=== PATIENT | male | born 1985 | race African-American/Black ===

== ENCOUNTER 2018-06-06 06:59 | Inpatient (IN) | payer MEDICAID ==
[~2018-06-06] VITALS: Ht 188 cm; Wt 83.5 kg
[~2018-06-06 06:59] MED LIST: ATOR10TA69 MT; FURO-151 PO; METO-539 MT
[2018-06-06] MEDS ORDERED: NITROGLYCERIN OINT 1GM/INCH UDPKT TD STA (07:13)
[2018-06-06] MEDS ORDERED: FUROSEMIDE 40MG/4ML VIAL IVP ONE (07:15)
[2018-06-06 08:09] LABS: EOSINOPHILS % 6.5 % (0.0-5.0); HEMATOCRIT. 38.8 % (42.0-52.0); HEMOGLOBIN. 12.5 g/dL (14.0-18.0); LYMPHOCYTES % 16.2 % (20.0-50.0); MEAN CORPUSCULAR HEMOGLOBIN 26.9 pg (28.0-32.0); MEAN CORPUSCULAR VOLUME 83.5 fL (80.0-94.0); MEAN PLATELET VOLUME 8.6 fl (7.4-10.4); MONOCYTES % 12.7 % (2.0-8.0); NEUTROPHILS % 63.6 % (40.0-76.0); PLATELET 166 x1000/uL (130-400); RED BLOOD CELL COUNT 4.65 mill/uL (4.7-6.1); RED CELL DISTRIBUTION WIDTH 19.2 % (11.6-14.6)
[2018-06-06 08:13] LABS: INR 1.5; PROTHROMBIN TIME 15.4 sec (9.4-11.6)
[2018-06-06 08:17] LABS: CHLORIDE 99 mEq/L (98-107)
[2018-06-06] MEDS ORDERED: ASPIRIN 325MG TABLET PO ONE (09:00)
[2018-06-06 09:14] LABS: CLARITY URINE CLEAR (CLEAR); COLOR URINE YELLOW (YELLOW); KETONES URINE NEGATIVE (NEGATIVE); LEUKOCYTE ESTERASE URINE NEGATIVE (NEGATIVE); NITRITE URINE NEGATIVE (NEGATIVE); OCCULT BLOOD URINE TRACE (NEGATIVE); PROTEIN URINE 1+ (NEGATIVE); SPECIFIC GRAVITY URINE 1.006 (1.005-1.030)
[2018-06-06] MEDS ORDERED: LORAZEPAM 0.5MG TABLET PO PRN (10:45)
[2018-06-06] MEDS ORDERED: ACETAMINOPHEN 650MG SUPP PR PRN (10:45)
[2018-06-06] MEDS ORDERED: HYDROCODONE/ACETAMINOPHEN 5/325MG TABLET PO PRN (10:45)
[2018-06-06] MEDS ORDERED: IPRATROPIUM/ALBUTEROL 0.5-3(2.5)MG/3ML NEB INH PRN (10:45)
[2018-06-06] MEDS ORDERED: ACETAMINOPHEN 650MG/20.3ML UDC GT PRN (10:45)
[2018-06-06] MEDS ORDERED: ACETAMINOPHEN 325MG TABLET PO PRN (10:45)
[2018-06-06] MEDS ORDERED: DOCUSATE SODIUM 100MG CAPSULE PO PRN (10:45)
[2018-06-06] MEDS ORDERED: HYDROCODONE/ACETAMINOPHEN 10/325MG TABLET PO PRN (10:45)
[2018-06-06] MEDS ORDERED: CLONIDINE 0.1MG TABLET PO PRN (10:45)
[2018-06-06] MEDS ORDERED: DIPHENHYDRAMINE 50MG/ML VIAL IV PRN (10:45)
[2018-06-06] MEDS ORDERED: MAGNESIUM/ALUMINUM HYDROXIDE/SIMETHICONE 30ML UDC PO PRN (10:45)
[2018-06-06] MEDS ORDERED: ONDANSETRON HCL 4MG/2ML VIAL IV PRN (10:45)
[2018-06-06] MEDS ORDERED: GUAIFENESIN 200MG/10ML SUGAR FREE UDC PO PRN (10:45)
[2018-06-06] MEDS ORDERED: FUROSEMIDE 40MG/4ML VIAL IVP SCH (13:15)
[2018-06-06] MEDS ORDERED: NA PHOS,M-B/NA PHOS,DI-BA ENEMA 118ML PR PRN (16:00)
[2018-06-06 17:30] LABS: CREATINE KINASE MB FRACTION 5.4 ng/mL (0.5-3.6)
[2018-06-06 22:20] VITALS: BP 108/72
[2018-06-06] MEDS ORDERED: ATORVASTATIN CALCIUM 10MG TABLET PO SCH (23:25)
[2018-06-06 23:43] VITALS: BP 141/84
[2018-06-06] MEDS: FUROSEMIDE 40MG/4ML VIAL IVP SCH (23:46)
[2018-06-07] VITALS: BP 107/72
[2018-06-07 03:17] LABS: CREATINE KINASE MB FRACTION 5.5 ng/mL (0.5-3.6)
[2018-06-07 04:00] VITALS: BP 108/74
[2018-06-07 06:51] LABS: BASOPHILS % 1.3 % (0.0-2.0); EOSINOPHILS % 12.6 % (0.0-5.0); HEMATOCRIT. 38.2 % (42.0-52.0); HEMOGLOBIN. 12.3 g/dL (14.0-18.0); MEAN CORPUSCULAR HEMOGLOBIN 26.8 pg (28.0-32.0); MEAN CORPUSCULAR VOLUME 83.1 fL (80.0-94.0); MEAN PLATELET VOLUME 8.8 fl (7.4-10.4); MONOCYTES % 13.9 % (2.0-8.0); NEUTROPHILS % 47.2 % (40.0-76.0); PLATELET 163 x1000/uL (130-400); RED CELL DISTRIBUTION WIDTH 18.7 % (11.6-14.6)
[2018-06-07 07:36] LABS: CHLORIDE 100 mEq/L (98-107)
[2018-06-07 07:42] LABS: PHOSPHORUS 3.7 mg/dL (2.5-4.9)
[2018-06-07 07:43] LABS: LDL CHOLESTEROL 69 mg/dL (5-100)
[2018-06-07 07:45] LABS: HDL CHOLESTEROL 20 mg/dL (40-59)
[2018-06-07 07:52] LABS: T4 FREE 1.43 ng/dL (0.76-1.46)
[2018-06-07 08:00] VITALS: BP 97/66
[2018-06-07] MEDS: LOSARTAN POTASSIUM 25 MG TABLET PO SCH ×2 (08:37→20:46)
[2018-06-07] MEDS: CARVEDILOL 3.125 MG TABLET PO SCH ×2 (08:37→17:19)
[2018-06-07] MEDS: AMLODIPINE 2.5MG TABLET PO SCH ×2 (08:37→20:45)
[2018-06-07] MEDS: FUROSEMIDE 40MG/4ML VIAL IVP SCH ×2 (09:29→17:19)
[2018-06-07 12:00] VITALS: BP 107/72
[2018-06-07 16:00] VITALS: BP 108/78
[2018-06-07 20:00] VITALS: BP 111/78
[2018-06-08] VITALS: BP 106/77
[2018-06-08 04:00] VITALS: BP 113/73
[2018-06-08] MEDS: FUROSEMIDE 40MG/4ML VIAL IVP SCH ×2 (05:43→16:09)
[2018-06-08 05:45] VITALS: BP 117/69
[2018-06-08 07:02] LABS: CHLORIDE 100 mEq/L (98-107)
[2018-06-08 07:20] LABS: EOSINOPHILS % 12.8 % (0.0-5.0); HEMATOCRIT. 36.5 % (42.0-52.0); HEMOGLOBIN. 11.7 g/dL (14.0-18.0); LYMPHOCYTES % 23.3 % (20.0-50.0); MEAN CORPUSCULAR HEMOGLOBIN 26.9 pg (28.0-32.0); MEAN CORPUSCULAR VOLUME 83.7 fL (80.0-94.0); MEAN PLATELET VOLUME 8.7 fl (7.4-10.4); NEUTROPHILS % 51.9 % (40.0-76.0); PLATELET 165 x1000/uL (130-400); RED BLOOD CELL COUNT 4.36 mill/uL (4.7-6.1); RED CELL DISTRIBUTION WIDTH 18.8 % (11.6-14.6)
[2018-06-08 07:23] LABS: PHOSPHORUS 3.5 mg/dL (2.5-4.9)
[2018-06-08 07:26] LABS: CREATINE KINASE 857 IU/L (39-308)
[2018-06-08] MEDS: CARVEDILOL 3.125 MG TABLET PO SCH (08:22)
[2018-06-08] MEDS: AMLODIPINE 2.5MG TABLET PO SCH (08:23)
[2018-06-08] MEDS: LOSARTAN POTASSIUM 25 MG TABLET PO SCH (08:23)
[2018-06-08 12:00] VITALS: BP 116/80
[2018-06-08 15:50] VITALS: BP 118/60
== END 2018-06-08 16:16 | disposition home or self-care (01) | DRG 469 ==
LOC: ER 06:59 → 8WST 08:40 → EDBEDREQ 08:45 → ENRESERV 19:56 → 8WST 22:46
PROVIDERS: ADMIT Internal Medicine; ATTEND Internal Medicine
DX: N17.9 Acute kidney failure, unspecified (principal); J96.91 Respiratory failure, unspecified with hypoxia; I50.23 Acute on chronic systolic (congestive) heart failure; E44.0 Moderate protein-calorie malnutrition; E87.2 Acidosis; N18.3 Chronic kidney disease, stage 3 (moderate); I42.0 Dilated cardiomyopathy; I13.0 Hypertensive heart and chronic kidney disease with heart failure and stage 1 through stage 4 chronic kidney disease, or unspecified chronic kidney disease; I27.20 Pulmonary hypertension, unspecified; M62.82 Rhabdomyolysis; E87.1 Hypo-osmolality and hyponatremia; E78.00 Pure hypercholesterolemia, unspecified; I25.10 Atherosclerotic heart disease of native coronary artery without angina pectoris; J45.909 Unspecified asthma, uncomplicated; I08.1 Rheumatic disorders of both mitral and tricuspid valves; D64.9 Anemia, unspecified; Z82.49 Family history of ischemic heart disease and other diseases of the circulatory system; Z95.810 Presence of automatic (implantable) cardiac defibrillator; Z68.23 Body mass index [BMI] 23.0-23.9, adult
CPT/HCPCS: 36415; 71045; 80048; 80053; 80061; 81003; 82550; 82553; 83605; 83690; 83735; 83880; 84100; 84439; 84443; 84481; 84484; 85025; 85379; 85610; 87040; 87086; 93005; 93970; 96374; 97162; 99285; J1940; J2405; J7620

== ENCOUNTER 2018-10-11 20:58 | Emergency (ER) | payer MEDICAID, OTHER ==
[~2018-10-11] VITALS: Ht 188 cm; Wt 88.0 kg
[2018-10-11] MEDS ORDERED: SODIUM CHLORIDE 0.9% 1,000 ML IV ONE (21:41)
[2018-10-11] MEDS ORDERED: DOPAMINE 400MG PREMIX 250 ML IV ONE (21:45)
[2018-10-11 22:15] LABS: BG CARBOXYHEMOGLOBIN 1.1 % (0.5-1.5); BG DEOXYHEMOGLOBIN 8.4 % (0.0-5.0); BG FRACTION INSPIRED OXYGEN 21; BG HCO3 ACT 24.3 mmol/L (22.0-26.0); BG METHEMOGLOBIN 0.2 % (0.0-1.5); BG OXYGEN SATURATION 91.5 % (92.0-98.5); BG OXYHEMOGLOBIN 90.3 % (94.0-97.0); BG PCO2 38.4 mmHg (35.0-45.0); BG PH 7.419 (7.350-7.450); BG PO2 65.8 mmHg (75.0-100.0); BG SAMPLE SITE RIGHT BRACHIAL; BG TOTAL HEMOGLOBIN 12.9 g/dL (12.0-18.0); BG VENT MODE ROOM AIR
[2018-10-11] MEDS ORDERED: ONDANSETRON HCL 4MG/2ML INJ IV ONE (22:15)
[2018-10-11] MEDS ORDERED: LIDOCAINE HCL 2% JELLY 5ML TOP ONE (22:30)
[2018-10-11] MEDS ORDERED: LIDOCAINE HCL 1% 20ML VIAL (Pyxis) INJ INFIL ONE (22:30)
[2018-10-11] MEDS ORDERED: ALBUTEROL (0.083%) 2.5MG/3ML NEB HHN STA (22:33)
[2018-10-11] MEDS ORDERED: IPRATROPIUM BROMIDE (0.02%) 0.5MG/2.5ML NEB HHN STA (22:33)
[2018-10-11] MEDS ORDERED: METHYLPREDNISOLONE SOD SUCC 125 MG/2 ML VIAL IV STA (22:33)
[2018-10-11] MEDS ORDERED: MAGNESIUM 2 G PREMIX 50 ML IV STA (22:33)
[2018-10-11 23:28] LABS: BASOPHILS % 0.7 % (0.0-2.0); EOSINOPHILS % 8.8 % (0.0-5.0); HEMATOCRIT. 38.7 % (42.0-52.0); LYMPHOCYTES % 18.8 % (20.0-50.0); MEAN CORPUSCULAR HEMOGLOBIN 29.4 pg (28.0-32.0); MEAN CORPUSCULAR VOLUME 87.7 fL (80.0-94.0); MEAN PLATELET VOLUME 8.4 fl (7.4-10.4); MONOCYTES % 13.2 % (2.0-8.0); NEUTROPHILS % 58.5 % (40.0-76.0); PLATELET 133 x1000/uL (130-400); RED BLOOD CELL COUNT 4.42 mill/uL (4.7-6.1); RED CELL DISTRIBUTION WIDTH 16.3 % (11.6-14.6)
[2018-10-11 23:37] LABS: CHLORIDE 101 mEq/L (98-107)
[2018-10-11 23:46] LABS: ETHANOL BLOOD < 10 mg/dL
[2018-10-11 23:54] LABS: D-DIMER 1.74 mg/L FEU (<0.50); INR 1.3; PARTIAL THROMBOPLASTIN TIME 26.8 sec (23.4-31.0); PROTHROMBIN TIME 13.5 sec (9.1-11.1)
[2018-10-12] MEDS ORDERED: IOHEXOL-350 100 ML BOTTLE ONE (00:48)
[2018-10-12] MEDS ORDERED: ASPIRIN 81MG TABLET PO ONE (01:45)
[2018-10-12] MEDS ORDERED: POTASSIUM CHLORIDE 20MEQ TABLET SR PO ONE (02:00)
[2018-10-12 03:36] LABS: *AMPHETAMINES SCREEN URINE NEGATIVE (NEGATIVE); *BARBITURATES SCREEN URINE NEGATIVE (NEGATIVE); *BENZODIAZEPINES SCREEN URINE NEGATIVE (NEGATIVE); *COCAINE SCREEN URINE NEGATIVE (NEGATIVE); CANNABINOID URINE SCREEN PRESUMTIVE POSITIVE (NEGATIVE); METHADONE URINE SCREEN NEGATIVE (NEGATIVE); OPIATES URINE SCREEN NEGATIVE (NEGATIVE); PHENCYCLIDINE URINE SCREEN NEGATIVE (NEGATIVE)
[2018-10-12 04:00] LABS: CLARITY URINE CLEAR (CLEAR); COLOR URINE DARK YELLOW (YELLOW); KETONES URINE NEGATIVE (NEGATIVE); LEUKOCYTE ESTERASE URINE NEGATIVE (NEGATIVE); NITRITE URINE NEGATIVE (NEGATIVE); OCCULT BLOOD URINE NEGATIVE (NEGATIVE); PROTEIN URINE 3+ (NEGATIVE); SPECIFIC GRAVITY URINE 1.047 (1.005-1.030)
[2018-10-12] MEDS ORDERED: OMEPRAZOLE 20MG CAPSULE EXTENDED RELEASE PO SCH (09:30)
[2018-10-12] MEDS ORDERED: FUROSEMIDE 100MG/10ML VIAL IVP SCH (09:30)
[2018-10-12] MEDS ORDERED: ACETAMINOPHEN 325MG TABLET PO PRN (09:30)
[2018-10-12] MEDS ORDERED: ONDANSETRON HCL 4MG/2ML INJ IV PRN (09:30)
[2018-10-12 10:06] VITALS: BP 117/75
[2018-10-12] MEDS ORDERED: NITROGLYCERIN OINT 1GM/INCH UDPKT TD SCH (14:00)
[2018-10-13] MEDS ORDERED: ASPIRIN 81MG TABLET PO SCH (09:00)
== END 2018-10-12 10:18 | disposition left against medical advice (07) ==
LOC: ER 21:05 → EDBEDREQTM 10-12 00:02 → EDBEDREQ 10-12 00:02 → ER 10-12 10:18 → CANBEDREQ 10-12 14:42
DX: J96.01 Acute respiratory failure with hypoxia (principal); I50.40 Unspecified combined systolic (congestive) and diastolic (congestive) heart failure; I11.0 Hypertensive heart disease with heart failure; J45.909 Unspecified asthma, uncomplicated; R07.9 Chest pain, unspecified; E87.8 Other disorders of electrolyte and fluid balance, not elsewhere classified; Z95.0 Presence of cardiac pacemaker
CPT/HCPCS: 36415; 36600; 71045; 71275; 74174; 80053; 80305; 81003; 82375; 82805; 82962; 83605; 83690; 83880; 84145; 84484; 85025; 85379; 85610; 85730; 87040; 87086; 93005; 94644; 96365; 96366; 96368; 96375; 99291; G0482; J1265; J2405; J2930; J3475; J7030; Q9967; J3490; J7611

== ENCOUNTER 2019-07-07 10:29 | Emergency (ER) | payer MEDICAID, OTHER ==
[~2019-07-07] VITALS: Ht 185.4 cm; Wt 82.0 kg
[2019-07-07 11:53] LABS: BASOPHILS % 0.6 % (0.0-2.0); EOSINOPHILS % 7.2 % (0.0-5.0); HEMATOCRIT. 42.1 % (42.0-52.0); HEMOGLOBIN. 14.1 g/dL (14.0-18.0); MEAN CORPUSCULAR HEMOGLOBIN 30.1 pg (28.0-32.0); MEAN CORPUSCULAR VOLUME 90.1 fL (80.0-94.0); MEAN PLATELET VOLUME 9.3 fl (7.4-10.4); MONOCYTES % 14.8 % (2.0-8.0); NEUTROPHILS % 59.4 % (40.0-76.0); PLATELET 121 x1000/uL (130-400); RED BLOOD CELL COUNT 4.68 mill/uL (4.7-6.1); RED CELL DISTRIBUTION WIDTH 14.3 % (11.6-14.6)
[2019-07-07 11:56] LABS: CHLORIDE 100 mEq/L (98-107)
[2019-07-07 11:57] LABS: INR 1.2; PROTHROMBIN TIME 12.7 sec (9.6-11.0)
[2019-07-07 14:10] VITALS: BP 82/48
== END 2019-07-07 14:10 | disposition home or self-care (01) ==
LOC: ER 10:29
DX: R55 Syncope and collapse (principal); I50.9 Heart failure, unspecified; J45.909 Unspecified asthma, uncomplicated; Z98.890 Other specified postprocedural states
CPT/HCPCS: 36415; 71045; 83880; 84484; 93005; 99284

== ENCOUNTER 2020-04-08 23:46 | Inpatient (IN) | payer MEDICAID, OTHER ==
[~2020-04-08] VITALS: Ht 182.9 cm; Wt 83.5 kg
[2020-04-09] VITALS (11 sets, daily range): BP systolic 50–177; BP diastolic 25–149
[2020-04-09] MEDS ORDERED: SODIUM CHLORIDE 0.9% 1,000 ML IV ONE ×2 (00:10→00:43)
[2020-04-09 01:09] LABS: HEMATOCRIT. 42.9 % (42.0-52.0); HEMOGLOBIN. 13.9 g/dL (14.0-18.0); MEAN CORPUSCULAR HEMOGLOBIN 30.2 pg (28.0-32.0); MEAN CORPUSCULAR VOLUME 93.2 fL (80.0-94.0); MEAN PLATELET VOLUME 10.9 fl (7.4-10.4); PLATELET 141 x1000/uL (130-400); RED CELL DISTRIBUTION WIDTH 15.1 % (11.6-14.6)
[2020-04-09 01:12] LABS: CHLORIDE 93 mEq/L (98-107); INR 1.3; PROTHROMBIN TIME 14.5 sec (9.6-11.0)
[2020-04-09] MEDS ORDERED: FURO80TA87 MT (01:14)
[2020-04-09] MEDS ORDERED: ATOR10TA69 PO (01:14)
[2020-04-09] MEDS ORDERED: SACU1TAB MT (01:14)
[2020-04-09] MEDS ORDERED: CARV12.545 MT (01:14)
[2020-04-09] MEDS ORDERED: METO2.5T14 PO (01:14)
[2020-04-09] MEDS ORDERED: APIX2.5T PO (01:14)
[2020-04-09 02:05] LABS: ATYPICAL LYMPHOCYTES 2; PLATELET ESTIMATE NORMAL
[2020-04-09] MEDS ORDERED: NOREPINEPHRINE 4 MG in DEXT 5% WATER 250 ML IV STA (02:15)
[2020-04-09] MEDS ORDERED: NOREPINEPHRINE 4MG/250ML PMX 250 ML IV SCH (02:30)
[2020-04-09] MEDS ORDERED: ACETAMINOPHEN 325MG TABLET PO PRN (09:45)
[2020-04-09] MEDS: SODIUM CHLORIDE 0.9% 1,000 ML IV SCH (09:45)
[2020-04-09 11:26] LABS: HEPATITIS B SURFACE ANTIGEN NEGATIVE
[2020-04-09] MEDS ORDERED: FUROSEMIDE 40MG/4ML VIAL IVP SCH (11:30)
[2020-04-09 11:55] LABS: HEPATITIS A AB IGM NEGATIVE (NEGATIVE)
[2020-04-09] MEDS ORDERED: MIDODRINE HCL 5MG TABLET PO NR (15:00)
[2020-04-09] MEDS: ENOXAPARIN 80MG/0.8ML SYR SUBCUT SCH (20:01)
[2020-04-09] MEDS ORDERED: IPRATROPIUM/ALBUTEROL 0.5-3(2.5)MG/3ML NEB HHN PRN (21:45)
[2020-04-09] MEDS: ONDANSETRON HCL 4MG/2ML INJ IV PRN (22:47)
[2020-04-09] MEDS ORDERED: GUAIFENESIN-DM 200MG-20MG/10ML UDC PO PRN (23:00)
[2020-04-10] VITALS (49 sets, daily range): BP systolic 84–143; BP diastolic 37–74
[2020-04-10] MEDS ORDERED: VANCOMYCIN 750 MG PREMIX 150 ML IV SCH (04:00)
[2020-04-10] MEDS: SODIUM CHLORIDE 0.9% 1,000 ML IV SCH (05:16)
[2020-04-10] MEDS: ENOXAPARIN 80MG/0.8ML SYR SUBCUT SCH ×3 (05:16→17:27)
[2020-04-10 06:33] LABS: BASOPHILS % 0.8 % (0.0-2.0); EOSINOPHILS % 2.7 % (0.0-5.0); HEMATOCRIT. 43.6 % (42.0-52.0); HEMOGLOBIN. 14.3 g/dL (14.0-18.0); LYMPHOCYTES % 23.4 % (20.0-50.0); MEAN CORPUSCULAR HEMOGLOBIN 30.2 pg (28.0-32.0); MEAN CORPUSCULAR VOLUME 91.9 fL (80.0-94.0); MEAN PLATELET VOLUME 9.8 fl (7.4-10.4); MONOCYTES % 14.9 % (2.0-8.0); NEUTROPHILS % 58.2 % (40.0-76.0); PLATELET 119 x1000/uL (130-400); RED BLOOD CELL COUNT 4.74 mill/uL (4.7-6.1)
[2020-04-10 06:43] LABS: CHLORIDE 94 mEq/L (98-107)
[2020-04-10 06:49] LABS: PHOSPHORUS 4.2 mg/dL (2.5-4.9)
[2020-04-10] MEDS: NOREPINEPHRINE 4 MG in DEXT 5% WATER 250 ML IV SCH (08:07)
[2020-04-10] MEDS ORDERED: LIDOCAINE HCL 1% 20ML VIAL (Pyxis) INJ ONE (08:37)
[2020-04-10] MEDS ORDERED: VANCOMYCIN 500 MG PREMIX 100 ML IV NR (10:00)
[2020-04-10] MEDS: MIDODRINE HCL 5MG TABLET PO SCH ×3 (10:21→17:54)
[2020-04-10 11:27] LABS: HEMATOCRIT 44.9 % (42.0-52.0); HEMOGLOBIN 14.9 g/dL (14.0-18.0); MEAN CORPUSCULAR HEMOGLOBIN 30.8 pg (28.0-32.0); MEAN CORPUSCULAR VOLUME 92.7 fL (80.0-94.0); PLATELET 106 x1000/uL (130-400); RED BLOOD CELL COUNT 4.84 mill/uL (4.7-6.1)
[2020-04-10 11:38] LABS: CHLORIDE 93 mEq/L (98-107)
[2020-04-10] MEDS: ALBUTEROL (0.083%) 2.5MG/3ML NEB HHN SCH ×2 (14:15→21:00)
[2020-04-10] MEDS: ONDANSETRON HCL 4MG/2ML INJ IV PRN ×2 (15:01→20:45)
[2020-04-10] MEDS: HYDROCODONE/ACETAMINOPHEN 10/325MG TABLET PO PRN (20:45)
[2020-04-10] MEDS: FLUTICASONE FUROATE 100 1 INH/CAP ORI SCH (22:42)
[2020-04-11] VITALS (92 sets, daily range): BP systolic 57–122; BP diastolic 24–87
[2020-04-11] MEDS: ALBUTEROL (0.083%) 2.5MG/3ML NEB HHN SCH ×4 (02:22→21:05)
[2020-04-11 05:08] LABS: HIV SCREEN 4G Non Reactive (Non Reactive)
[2020-04-11] MEDS: ENOXAPARIN 80MG/0.8ML SYR SUBCUT SCH ×3 (05:34→17:18)
[2020-04-11 06:07] LABS: HEMATOCRIT. 42.2 % (42.0-52.0); HEMOGLOBIN. 13.8 g/dL (14.0-18.0); MEAN CORPUSCULAR HEMOGLOBIN 30.3 pg (28.0-32.0); MEAN PLATELET VOLUME 10.2 fl (7.4-10.4); PLATELET 115 x1000/uL (130-400); RED BLOOD CELL COUNT 4.54 mill/uL (4.7-6.1); RED CELL DISTRIBUTION WIDTH 15.1 % (11.6-14.6)
[2020-04-11 06:14] LABS: CHLORIDE 92 mEq/L (98-107)
[2020-04-11 06:21] LABS: PHOSPHORUS 4.4 mg/dL (2.5-4.9)
[2020-04-11] MEDS: NOREPINEPHRINE 4 MG in DEXT 5% WATER 250 ML IV SCH ×2 (08:12→22:47)
[2020-04-11] MEDS: MIDODRINE HCL 5MG TABLET PO SCH ×3 (08:13→17:09)
[2020-04-11] MEDS: FLUTICASONE FUROATE 100 1 INH/CAP ORI SCH ×2 (08:13→21:00)
[2020-04-11 10:21] LABS: NUCLEATED RED BLOOD CELLS 1 /100 WBC; PLATELET ESTIMATE DECREASED
[2020-04-11] MEDS ORDERED: VANCOMYCIN 1 G PREMIX 200 ML IV NR (11:00)
[2020-04-11] MEDS: ONDANSETRON HCL 4MG/2ML INJ IV PRN ×2 (12:22→23:59)
[2020-04-11] MEDS: HYDROCODONE/ACETAMINOPHEN 10/325MG TABLET PO PRN (20:39)
[2020-04-12] VITALS (91 sets, daily range): BP systolic 66–151; BP diastolic 29–96
[2020-04-12] MEDS: ALBUTEROL (0.083%) 2.5MG/3ML NEB HHN SCH ×4 (01:52→20:45)
[2020-04-12 05:13] LABS: BASOPHILS % 0.9 % (0.0-2.0); EOSINOPHILS % 2.2 % (0.0-5.0); HEMATOCRIT. 42.4 % (42.0-52.0); HEMOGLOBIN. 14.1 g/dL (14.0-18.0); MEAN CORPUSCULAR HEMOGLOBIN 30.5 pg (28.0-32.0); MEAN CORPUSCULAR VOLUME 91.7 fL (80.0-94.0); MEAN PLATELET VOLUME 10.3 fl (7.4-10.4); MONOCYTES % 13.4 % (2.0-8.0); NEUTROPHILS % 61.5 % (40.0-76.0); PLATELET 120 x1000/uL (130-400); RED BLOOD CELL COUNT 4.62 mill/uL (4.7-6.1); RED CELL DISTRIBUTION WIDTH 15.4 % (11.6-14.6)
[2020-04-12 05:26] LABS: CHLORIDE 91 mEq/L (98-107)
[2020-04-12 05:32] LABS: PHOSPHORUS 4.4 mg/dL (2.5-4.9)
[2020-04-12] MEDS: ENOXAPARIN 80MG/0.8ML SYR SUBCUT SCH ×2 (05:42→17:41)
[2020-04-12] MEDS: MIDODRINE HCL 5MG TABLET PO SCH ×3 (08:24→17:40)
[2020-04-12] MEDS: FLUTICASONE FUROATE 100 1 INH/CAP ORI SCH ×2 (08:24→21:23)
[2020-04-12] MEDS: HYDROCODONE/ACETAMINOPHEN 10/325MG TABLET PO PRN (17:40)
[2020-04-12] MEDS: ONDANSETRON HCL 4MG/2ML INJ IV PRN (20:25)
[2020-04-13] VITALS (8 sets, daily range): BP systolic 90–113; BP diastolic 47–80
[2020-04-13] MEDS: HYDROCODONE/ACETAMINOPHEN 10/325MG TABLET PO PRN (01:02)
[2020-04-13] MEDS: ALBUTEROL (0.083%) 2.5MG/3ML NEB HHN SCH ×2 (02:41→12:00)
[2020-04-13] MEDS: ONDANSETRON HCL 4MG/2ML INJ IV PRN (05:02)
[2020-04-13] MEDS: ENOXAPARIN 80MG/0.8ML SYR SUBCUT SCH (06:42)
[2020-04-13 06:46] LABS: HEMATOCRIT. 42.7 % (42.0-52.0); HEMOGLOBIN. 14.3 g/dL (14.0-18.0); MEAN CORPUSCULAR VOLUME 92.7 fL (80.0-94.0); MEAN PLATELET VOLUME 10.3 fl (7.4-10.4); PLATELET 126 x1000/uL (130-400); RED BLOOD CELL COUNT 4.61 mill/uL (4.7-6.1)
[2020-04-13 07:07] LABS: PHOSPHORUS 5.1 mg/dL (2.5-4.9)
[2020-04-13] MEDS: MIDODRINE HCL 5MG TABLET PO SCH (08:22)
[2020-04-13] MEDS: FLUTICASONE FUROATE 100 1 INH/CAP ORI SCH (09:00)
[2020-04-13] MEDS ORDERED: SODIUM POLYSTYRENE SULFONATE 15 G/60 ML BOT PO NR (12:27)
[2020-04-13 14:16] LABS: PLATELET ESTIMATE NORMAL
[2020-04-13] MEDS ORDERED: MIDODRINE HCL 5MG TABLET PO SCH (17:00)
[2020-04-13] MEDS ORDERED: APIXABAN 5 MG TABLET PO SCH (17:00)
[2020-04-13] MEDS ORDERED: CARVEDILOL 3.125 MG TABLET PO SCH (21:00)
== END 2020-04-13 17:41 | disposition left against medical advice (07) | DRG 196 ==
LOC: ER 23:46 → CVICU 04-09 03:14 → EDBEDREQ 04-09 03:17 → EDBEDREQTM 04-09 03:17 → EDBEDREQSVC 04-09 03:17 → ENRESERV 04-09 20:43 → 5EST 04-13 00:43
PROVIDERS: ADMIT Internal Medicine; ATTEND Internal Medicine
PROC: 4B02XTZ Measurement of Cardiac Defibrillator, External Approach (ICD-10-PCS; 2020-04-09)
PROC: 05HM33Z Insertion of Infusion Device into Right Internal Jugular Vein, Percutaneous Approach (ICD-10-PCS; principal; 2020-04-10)
PROC: B543ZZA Ultrasonography of Right Jugular Veins, Guidance (ICD-10-PCS; 2020-04-10)
PROC: 5A1D70Z Performance of Urinary Filtration, Intermittent, Less than 6 Hours Per Day (ICD-10-PCS; 2020-04-13)
DX: R57.0 Cardiogenic shock (principal); N17.0 Acute kidney failure with tubular necrosis; I47.2 Ventricular tachycardia; E87.1 Hypo-osmolality and hyponatremia; E44.1 Mild protein-calorie malnutrition; I08.1 Rheumatic disorders of both mitral and tricuspid valves; E87.8 Other disorders of electrolyte and fluid balance, not elsewhere classified; E87.5 Hyperkalemia; I13.0 Hypertensive heart and chronic kidney disease with heart failure and stage 1 through stage 4 chronic kidney disease, or unspecified chronic kidney disease; I42.0 Dilated cardiomyopathy; I50.22 Chronic systolic (congestive) heart failure; Z53.29 Procedure and treatment not carried out because of patient's decision for other reasons; N18.9 Chronic kidney disease, unspecified; R74.0 Nonspecific elevation of levels of transaminase and lactic acid dehydrogenase [LDH]; E78.5 Hyperlipidemia, unspecified; R18.8 Other ascites; I48.91 Unspecified atrial fibrillation; I27.21 Secondary pulmonary arterial hypertension; J45.909 Unspecified asthma, uncomplicated; Z79.01 Long term (current) use of anticoagulants; Z95.810 Presence of automatic (implantable) cardiac defibrillator; Z68.25 Body mass index [BMI] 25.0-25.9, adult; Z79.899 Other long term (current) drug therapy
CPT/HCPCS: 36415; 71045; 76700; 76937; 78580; 80048; 80053; 80202; 83605; 83735; 83880; 84100; 84145; 84484; 85025; 85027; 85379; 86705; 86709; 86803; 86850; 86900; 87340; 87389; 93005; 93306; 96361; 96365; 96366; 99291; C1725; J1650; J2405; J3370; J3490; J7030; J7060

== ENCOUNTER 2022-03-18 10:27 | Emergency (ER) | payer MEDICARE, MEDICAID ==
[~2022-03-18] VITALS: Ht 185.4 cm; Wt 86.0 kg
[~2022-03-18 10:27] MED LIST changes: +APIX2.5T PO; -ATOR10TA69 MT; +ATOR10TA69 PO; +CARV12.545 MT; -FURO-151 PO; +FURO80TA87 MT; -METO-539 MT; +METO2.5T2 PO; +SACU1TAB MT
[2022-03-18 10:36] VITALS: BP 140/90
[2022-03-18] MEDS ORDERED: ACETAMINOPHEN 325MG TABLET PO ONE (10:45)
[2022-03-18] MEDS ORDERED: METHOCARBAMOL 500MG TABLET PO ONE (10:45)
== END 2022-03-18 12:38 | disposition left against medical advice (07) ==
LOC: ER 10:29
DX: S16.1XXA Strain of muscle, fascia and tendon at neck level, initial encounter (principal); S46.912A Strain of unspecified muscle, fascia and tendon at shoulder and upper arm level, left arm, initial encounter; I50.9 Heart failure, unspecified; X58.XXXA Exposure to other specified factors, initial encounter; Y93.89 Activity, other specified; Y92.9 Unspecified place or not applicable; Z94.0 Kidney transplant status; Z94.1 Heart transplant status
CPT/HCPCS: 73030; 99283

== ENCOUNTER 2022-10-26 02:48 | Emergency (ER) | payer MEDICARE, MEDICAID ==
[~2022-10-26] VITALS: Ht 185.4 cm; Wt 85.3 kg
[2022-10-26 03:00] VITALS: BP 134/87
== END 2022-10-26 05:00 | disposition left against medical advice (07) ==
LOC: ER 02:48
DX: Z53.21 Procedure and treatment not carried out due to patient leaving prior to being seen by health care provider (principal)